=== PATIENT | male | born 1970 | race Caucasian/White ===

== ENCOUNTER 2017-06-04 12:00 | Emergency (ER) | payer BC, OTHER ==
[2017-06-04 12:35] VITALS: TEMP 97.2
--- NOTE | 2017-06-04 13:16 | ED.PDOC ---
History of Present Illness - General Chief Complaint: Abdominal Pain Stated Complaint: abdominal pain Time Seen by Provider: 06/04/17 12:21 Source: patient Exam Limitations: no limitations - History of Present Illness Initial Comments: Hans Mosqueda 46 y/o male stated that he had been having intermittent sharp right side abdominal pain for the last 5-7 days no nausea/vomiting,no diarrhea, no hematuria,no hematemesis Timing/Duration: intermittent, other - see hpi Severity: moderate Improving Factors: nothing Worsening Factors: nothing Associated Symptoms: other - see hpi Allergies/Adverse Reactions: Allergies NO KNOWN ALLERGY Allergy (Unverified 04/22/14 15:15) Home Medications: Ambulatory Orders Albuterol Inhaler [Ventolin Hfa Inhaler] 1 puff INH Q4H PRN 06/15/14 Glyburide 10 mg PO BID 06/15/14 Lisinopril [Zestril] 20 mg PO BID 06/15/14 Metformin HCl 1,000 mg PO BID 06/15/14 SAXaglipitin [Onglyza] 5 mg PO DAILY 06/15/14 Albuterol Sulfate Nebs [Proventil Nebs] 2.5 mg INH QID #100 vial 06/18/14 predniSONE 20 mg PO QAM #15 tab 06/18/14 Acetaminophen W/ Codeine [Tylenol w/Codeine 300-30 mg] 1 tab PO Q6HRS PRN #14 tab 06/04/17 Review of Systems - Review of Systems Constitutional: States: no symptoms reported EENTM: States: no symptoms reported Respiratory: States: no symptoms reported Cardiology: States: no symptoms reported Gastrointestinal/Abdominal: States: see HPI Genitourinary: States: no symptoms reported Skin: States: no symptoms reported Neurological: States: no symptoms reported Past Medical History (General) - Patient Medical History Hx Seizures: No Hx Stroke: No Hx Asthma: Yes - SOB 2 weeks Hx of COPD: No Hx Cardiac Disorders: No Hx Congestive Heart Failure: No Hx Pacemaker: No Hx Hypertension: Yes Hx Diabetes: Yes Hx MRSA: No Surgical History: cholecystectomy, other - hernia repair - Social History Hx Alcohol Use: No Hx Substance Use: No Hx Physical Abuse: No Hx Emotional Abuse: No Hx Suspected Abuse: No Family Medical History - Family History Father Family History: Unknown Hx Family Hypertension: Yes Hx Family Diabetes: Yes Physical Exam - Physical Exam General Appearance: Alert, Anxious, No apparent distress Eye Exam: bilateral normal Ears, Nose, Throat: hearing grossly normal, normal ENT inspection, normal pharynx Neck: non-tender, full range of motion, supple Respiratory: chest non-tender, lungs clear, normal breath sounds Cardiovascular/Chest: normal peripheral pulses, regular rate, rhythm, no murmur Gastrointestinal/Abdominal: normal bowel sounds, non tender, soft, no organomegaly Back Exam: no CVA tenderness, no vertebral tenderness Extremity: no pedal edema, no calf tenderness Neurologic: alert, normal mood/affect, oriented x 3 Lymphatic: no adenopathy Progress - Progress Progress: 06/04/17 15:48 Last Vital Signs Temp 97.2 F L 06/04/17 12:10 Pulse 66 06/04/17 13:25 Resp 20 06/04/17 13:25 BP 104/64 06/04/17 13:25 Pulse Ox 94 L 06/04/17 13:25 - Results/Orders Results/Orders: 06/04/17 13:33 IV Care:Saline Lock per Protoc QSHIFT EKG Assessment DAILY 06/04/17 13:34 EKG Assessment ONCE 06/04/17 13:45 EKG STAT Laboratory Results - last 24 hr 06/04/17 06/04/17 06/04/17 12:40 13:30 13:30 WBC 7.1 RBC 5.21 Hgb 15.0 Hct 43.5 MCV 83.6 MCH 28.8 MCHC 34.5 RDW 13.6 Plt Count 226 MPV 8.1 Absolute Neuts (auto) 4.90 Absolute Lymphs (auto) 1.60 Absolute Monos (auto) 0.50 Absolute Eos (auto) 0.10 Absolute Basos (auto) 0.10 Neutrophils % 68.7 Lymphocytes % 23.1 Monocytes % 6.4 Eosinophils % 1.0 Basophils % 0.8 Sodium 138 Potassium 3.7 Chloride 102 Carbon Dioxide 26 Anion Gap 13.7 BUN 10 Creatinine 0.53 L BUN/Creatinine Ratio 18.9 Random Glucose 207 H Serum Osmolality 280.8 Calcium 9.2 Total Bilirubin 0.7 AST 19 ALT 24 Alkaline Phosphatase 67 Troponin I Serum Total Protein 7.0 Albumin 4.0 Globulin 3.0 Albumin/Globulin Ratio 1.3 Lipase 30 Urine Color Yellow Urine Appearance Clear Urine pH 5.0 Ur Specific [place] 1.025 Urine Protein Negative Urine Glucose (UA) 500 H Urine Ketones Negative Urine Blood Negative Urine Nitrite Negative Urine Bilirubin Negative Urine Urobilinogen 0.2 Ur Leukocyte Esterase Negative Urine RBC 0 Urine WBC 0 Ur Epithelial Cells 0 Urine Bacteria 0 06/04/17 13:30 WBC RBC Hgb Hct MCV MCH MCHC RDW Plt Count MPV Absolute Neuts (auto) Absolute Lymphs (auto) Absolute Monos (auto) Absolute Eos (auto) Absolute Basos (auto) Neutrophils % Lymphocytes % Monocytes % Eosinophils % Basophils % Sodium Potassium Chloride Carbon Dioxide Anion Gap BUN Creatinine BUN/Creatinine Ratio Random Glucose Serum Osmolality Calcium Total Bilirubin AST ALT Alkaline Phosphatase Troponin I < 0.02 Serum Total Protein Albumin Globulin Albumin/Globulin Ratio Lipase Urine Color Urine Appearance Urine pH Ur Specific [place] Urine Protein Urine Glucose (UA) Urine Ketones Urine Blood Urine Nitrite Urine Bilirubin Urine Urobilinogen Ur Leukocyte Esterase Urine RBC Urine WBC Ur Epithelial Cells Urine Bacteria - EKG/XRAY/CT EKG: Sinus, no ST T wave changes Comments: Heart Rate 64 XRAY: chest - atelectasis CT Ordered: Yes - abd/pelvis-hepatomegaly Departure - Departure Clinical Impression: Hepatomegaly Abdominal pain Qualifiers: Abdominal location: right upper quadrant Qualified Code(s): R10.11 - Right upper quadrant pain Time of Disposition: 16:00 Disposition: Discharge to Home or Self Care Condition: Fair Departure Forms: ED Discharge - Pt. Copy, Patient Portal Self Enrollment Diet: other - Avoid [place],spicy foods Referrals: Joe Bonds III, MD [Primary Care Provider] - 1-2 Weeks Prescriptions: Acetaminophen W/ Codeine [Tylenol w/Codeine 300-30 mg] 1 tab PO Q6HRS PRN #14 tab PRN Reason: Pain Home Medications: Ambulatory Orders Albuterol Inhaler [Ventolin Hfa Inhaler] 1 puff INH Q4H PRN 06/15/14 Glyburide 10 mg PO BID 06/15/14 Lisinopril [Zestril] 20 mg PO BID 06/15/14 Metformin HCl 1,000 mg PO BID 06/15/14 SAXaglipitin [Onglyza] 5 mg PO DAILY 06/15/14 Albuterol Sulfate Nebs [Proventil Nebs] 2.5 mg INH QID #100 vial 06/18/14 predniSONE 20 mg PO QAM #15 tab 06/18/14 Acetaminophen W/ Codeine [Tylenol w/Codeine 300-30 mg] 1 tab PO Q6HRS PRN #14 tab 06/04/17 Additional Instructions: Follow up with primary md 06/05/2017-call for your appointment
[2017-06-04] MEDS ORDERED: SODIUM CHLORIDE 0.9% 1000ML 1,000 ML IVS ONE (13:35)
--- NOTE | 2017-06-04 14:00 | RAD ---
EXAM DESCRIPTION: Chest,1 View CLINICAL HISTORY: 46 years Male, chest pain COMPARISON: None. IMPRESSION: Heart size and pulmonary vascularity are within normal limits. Focal reticulonodular interstitial thickening in the perihilar left lung. This is favored to represent mild scarring or atelectasis, though developing pneumonia is not totally excluded. Short interval follow-up recommended. Otherwise no confluent airspace consolidation, pleural effusion, or pneumothorax. No acute osseous abnormality. Electronically signed by: Jose A Morgan MD 06/04/2017 1:59 PM MANAGER MARKET
--- NOTE | 2017-06-04 15:23 | CT ---
EXAM DESCRIPTION: Abdoment/Pelvis w/o Contrast CLINICAL HISTORY: pain COMPARISON: April 08, 2014 TECHNIQUE: Noncontrast transaxial CT images of the abdomen and pelvis are obtained. This exam was performed according to our departmental dose-optimization program, which includes automated exposure control, adjustment of the mA and/or kV according to patient size and/or use of iterative reconstruction technique . FINDINGS: The visualized lung bases are unremarkable. Liver is enlarged measuring 18.8 cm. There is heterogeneous decreased attenuation of the liver compared to the spleen. Cholecystectomy changes are noted. Given the limitations of a noncontrast exam the spleen, pancreas, and adrenal glands are unremarkable. Mild vascular calcifications are seen. Tiny 2 mm nonobstructing calcification in a lower pole calyx of the left kidney on coronal image 103. Urinary bladder is contracted but unremarkable. Moderate prostate calcifications are seen. The appendix is within normal limits. Stomach is contracted. No bowel obstruction or bowel wall thickening is seen. Mild scattered diverticuli of the descending to sigmoid colon are seen without associated inflammatory changes or fluid collections. No pathologic lymphadenopathy. Osseous structures show no aggressive bony lesions. Moderate disc degenerative changes and facet arthropathy of the lumbar spine is seen. IMPRESSION: Minimal nonobstructing left nephrolithiasis. Mild colon diverticulosis without CT evidence of diverticulitis. Hepatomegaly with evidence of diffuse fatty infiltration is similar to previous exam. Interval cholecystectomy changes are noted. Electronically signed by: Johnie Dobson MD 06/04/2017 3:22 PM COTTAGE CHEESE MAKER
[2017-06-04 16:14] VITALS: BP 125/81; O2SAT 96
== END 2017-06-04 16:14 | disposition home or self-care (01) ==
LOC: ER 12:00
DX: R16.0 Hepatomegaly, not elsewhere classified (principal); E11.9 Type 2 diabetes mellitus without complications; I10 Essential (primary) hypertension
CPT/HCPCS: 36415; 71010; 74176; 80053; 81001; 83690; 84484; 85025; 93005; J7030

== ENCOUNTER → 2017-06-20 | Outpatient (CLI) | payer BC | END | disposition home or self-care (01) | LOC: LAB.O 11:50 | PROVIDERS: ATTEND Internal Medicine Gastroenterology | DX: K76.0 Fatty (change of) liver, not elsewhere classified (principal) ==

== ENCOUNTER → 2017-08-16 | Outpatient (CLI) | payer BC | LOC: GMAL 17:03 | PROVIDERS: ATTEND Family Medicine | DX: R10.84 Generalized abdominal pain (principal) ==

== ENCOUNTER → 2018-10-21 | Outpatient (CLI) | payer BC ==
--- NOTE | 2018-10-21 14:18 | MRI ---
EXAM DESCRIPTION: Lumbar Spine w/o Contrast : Magnetic Resonance Imaging. CLINICAL HISTORY: LOW BACK PAIN COMPARISON: X-ray lumbar spine 09/30/2018. TECHNIQUE: Multiplanar, multiple standard sequences, non contrast MRI, lumbar spine. FINDINGS: L5-S1: Moderate disc space loss and desiccated disc. Minimal anterior bulging. Posterior focal bulge/protrusion 6 mm with osteophytes impressing on the thecal sac. Bilaterally effacing the subarticular recesses encroaching on the bilateral S1 nerves. AP canal diameter 11 mm. Bilaterally minimally facet hypertrophic arthrosis and flavum ligament thickening. Moderate to severe left foraminal narrowing and moderate right foraminal narrowing. Circumscribed hyperintense T1 and T2 signal in the left L4 and left L5 vertebral bodies indicating hemangiomas. L4-L5: Disc desiccation and minimal disc space loss. Posterior broad-based 4 mm bulge. 6 mm protrusion and inferior extrusion to the right of midline impressing on the thecal sac and effacing the right subarticular recess and displacing the descending right L5 nerve. AP canal diameter 9 mm to the left of midline. Hypertrophic left facet arthrosis and thickening of the left flavum ligament. L3-L4: Normal signal in the disc with disc space preserved. Minimal hypertrophic arthrosis of the facets and ligamentum flavum thickening with mild canal narrowing. Bilateral foramina are patent. L2-L3: Normal signal in the disc with disc space preserved. Posterior elements unremarkable. Canal and foramina are patent. L2-L1: Normal signal in the disc with disc space preserved. Posterior elements unremarkable. Canal and foramina are patent. Conus terminates at L1. Anterior right inferior L1 endplate with Modic type I endplate reactive changes. T12-L1: Normal signal in the disc with disc space preserved. Posterior elements unremarkable. Canal and foramina are patent. Small Schmorl's node superior T1 endplate. T11-T12: Anterior disc desiccated with minimal bulging. Anterior endplate ridging. Inferior T11 endplate Modic type II reactive changes. No scoliosis or significant spondylolisthesis Paravertebral soft tissues are unremarkable. Normal marrow signal in the remaining vertebral bodies and the posterior elements. Vertebral bodies are not compressed at any level. IMPRESSION: 1. Posterior focal midline bulge/protrusion of the L5-S1 disc impressing on the thecal sac. Impressing on the bilateral subarticular recesses and the bilateral S1 nerves. Moderate canal narrowing. Moderate to severe left foraminal narrowing due to disc bulge and hypertrophic facets. 2. Superior broad-based L4-5 disc bulge with right paracentral disc protrusion and extrusion inferior effacing the right subarticular recess and displacing the right L5 nerve root posterior. Right paracentral mild canal stenosis. 3. Spondylosis anterior right inferior L1 endplate and inferior anterior T11 endplate. Electronically signed by: Angel Jean MD 10/21/2018 2:16 PM CDT
== END ==
LOC: MRI 06:48
PROVIDERS: ATTEND Family Medicine
DX: M51.87 Other intervertebral disc disorders, lumbosacral region (principal); M47.897 Other spondylosis, lumbosacral region

== ENCOUNTER → 2019-10-08 | Outpatient (CLI) | payer BC | LOC: GMAL 11:41 | PROVIDERS: ATTEND Family Medicine | DX: Z00.01 Encounter for general adult medical examination with abnormal findings (principal) ==

== ENCOUNTER → 2019-10-14 | Outpatient (CLI) | payer BC | LOC: GMAL 11:15 | PROVIDERS: ATTEND Family Medicine | DX: R10.84 Generalized abdominal pain (principal) ==

== ENCOUNTER → 2019-10-15 | Outpatient (CLI) | payer BC ==
--- NOTE | 2019-10-15 13:07 | US ---
EXAM DESCRIPTION: Abdomen,Complete: Ultrasound. CLINICAL HISTORY: 48 years MaleGENERALIZED ABDOMINAL PAIN COMPARISON: None Available. TECHNIQUE: Transabdominal scanning: grayscale and Doppler modes.. Limited by large patient body habitus. FINDINGS: Gallbladder: Surgically removed. No fluid in the gallbladder fossa. Nontender with transducer pressure. Common bile duct: 8.2 mm caliber is dilated for age and postcholecystectomy. Liver: Diffuse increased echogenicity. Long axis of the right lobe 21.3 cm. Physiologic caliber 1.2 cm, and flow direction in the portal vein. Smooth capsule with no ascites. No intrahepatic biliary dilatation. Pancreas: Negative.. Abdominal aorta: Normal caliber from the proximal segment to the distal bifurcation. IVC: visualized; normal caliber. Spleen normal echogenicity; long axis measurement is 14.1 cm. Right kidney: 10.8 cm long axis. Normal cortical thickness and echogenicity. No echogenic stones, no hydronephrosis, and no perirenal fluid. Left kidney: 11.4 cm long axis. Normal cortical thickness and echogenicity. No echogenic stones, no hydronephrosis, and no perirenal fluid. IMPRESSION: 1. Large patient body habitus. Fatty enlarged liver. Physiologic ducts and vascularity. Smooth capsule with no ascites. Remainder liver negative. Pancreas is unremarkable. 2. Prior cholecystectomy with no fluid or tenderness. Common bile duct is dilated, and consideration of age and postcholecystectomy. 3. Normal caliber of the abdominal aorta and IVC. Negative findings spleen and bilateral kidneys. Electronically signed by: Angel Jean MD 10/15/2019 1:05 PM CDT
== END ==
LOC: US 08:07
PROVIDERS: ATTEND Family Medicine
DX: K76.0 Fatty (change of) liver, not elsewhere classified (principal); K83.8 Other specified diseases of biliary tract; Z90.49 Acquired absence of other specified parts of digestive tract

== ENCOUNTER → 2019-11-14 | Outpatient (CLI) | payer BC ==
--- NOTE | 2019-11-17 08:48 | MRI ---
EXAM DESCRIPTION: Abdomen: MRI. MRCP. CLINICAL HISTORY: 48 years Male DILATED COMMON BILE DUCT. Prior cholecystectomy. COMPARISON: Complete abdominal ultrasound September 2018. TECHNIQUE: Multiplanar, high-field MRI, multiple sequences, without contrast: Entered MRCP technique FINDINGS: MRCP shows mild narrowing at the cystic duct remnant. No proximal dilation of the common hepatic duct or the right and left hepatic ducts. Normal caliber of the common bile duct to the duodenal sphincter. Normal caliber of the pancreatic duct. No mass effect. Lung and Pleural bases: No infiltrate or pleural effusion. Stomach, Liver, Adrenal Glands, and Spleen: Small cyst posterior right lobe of liver. Long axis right lobe 23 cm. Stomach and other solid organs negative. Kidneys: Minimal cortical thinning bilaterally. This may be artifact, with normal cortical thickness and echogenicity seen on recent ultrasound. Proximal ureters unremarkable. Aorta: Normal caliber. Small Bowel: Included segments negative. TI and Cecum: Normal caliber of the TI. Cecum and appendix not well seen. No inflammatory changes. Colon: Normal caliber. Abdominal wall and back soft tissues: Negative. Mesentery: No ascites. Osseous structures: Unremarkable. IMPRESSION: 1. Intrahepatic ducts, and hepatic duct and common bile duct are normal caliber with minimal narrowing at the cystic duct remnant. No dilation or obstruction. Normal caliber of the pancreatic duct. 2. Small right hepatic cyst. Hepatomegaly with no ascites. Electronically signed by: Angel Jean MD 11/17/2019 8:47 AM CDT
== END ==
LOC: MRI 08:44
PROVIDERS: ATTEND Internal Medicine Gastroenterology
DX: K83.8 Other specified diseases of biliary tract (principal); K76.89 Other specified diseases of liver; R16.0 Hepatomegaly, not elsewhere classified; R93.89 Abnormal findings on diagnostic imaging of other specified body structures

== ENCOUNTER → 2020-04-26 | Outpatient (CLI) | payer BC | LOC: GMAL 14:41 | PROVIDERS: ATTEND Family Medicine | DX: F52.21 Male erectile disorder (principal); Z12.5 Encounter for screening for malignant neoplasm of prostate; R53.83 Other fatigue; E78.2 Mixed hyperlipidemia; E11.42 Type 2 diabetes mellitus with diabetic polyneuropathy; Z79.899 Other long term (current) drug therapy ==

== ENCOUNTER 2020-05-10 10:05 | Emergency (ER) | payer BC ==
[2020-05-10] MEDS ORDERED: IPRATROPIUM/ALBUTEROL 3 ML VIAL NEB ONE (10:50)
--- NOTE | 2020-05-10 12:02 | RAD ---
EXAM DESCRIPTION: Chest,1 View x-ray CLINICAL HISTORY: 49 years Male, covid COMPARISON: 06/04/2017 IMPRESSION: Heart size and pulmonary vascularity are within normal limits. Mild peripheral opacities in both lungs concerning for atelectasis versus pneumonia. Short interval follow-up PA and lateral chest radiographs recommended. No pleural effusion or pneumothorax. No acute osseous abnormality. Electronically signed by: Jose A Morgan MD 05/10/2020 12:01 PM SALT PLANT OPERATOR
[2020-05-10] MEDS ORDERED: AZITHROMYCIN 250 MG TAB PO ONE (12:20)
[2020-05-10] MEDS ORDERED: predniSONE 20 MG TAB PO ONE (12:20)
--- NOTE | 2020-05-10 12:22 | ED.PDOC ---
History of Present Illness - General Chief Complaint: Respiratory Problem Stated Complaint: SHORT OF BREATH AND COVID 9 DAYS Time Seen by Provider: 05/10/20 10:44 Source: patient Exam Limitations: no limitations - History of Present Illness Initial Comments: The patient is a 49-year-old presented emergency room secondary to persistent feeling of some shortness of breath. No syncope. Cough is minimal. He does actually respond to his nebulizer treatments which he takes about every 6 hours. He reports that he has not been on steroids or azithromycin. He is a diabetic and has been watching that closely. No syncope or near syncope. No chest pain. No rash. Cough is only minimally productive. Timing/Duration: constant Severity: moderate Improving Factors: nothing Worsening Factors: nothing Associated Symptoms: cough, malaise, shortness of breath Allergies/Adverse Reactions: Allergies NO KNOWN ALLERGY Allergy (Unverified 04/22/14 15:15) Home Medications: Ambulatory Orders Albuterol Inhaler [Ventolin Hfa Inhaler] 1 puff INH Q4H PRN 06/15/14 Glyburide 10 mg PO BID 06/15/14 Lisinopril [Zestril] 20 mg PO BID 06/15/14 Metformin HCl [Metformin Hydrochloride] 1,000 mg PO BID 06/15/14 SAXaglipitin [Onglyza] 5 mg PO DAILY 06/15/14 Albuterol Sulfate Nebs [Proventil Nebs] 2.5 mg INH QID #100 vial 06/18/14 predniSONE 20 mg PO QAM #15 tab 06/18/14 Acetaminophen W/ Codeine [Tylenol w/Codeine 300-30 mg] 1 tab PO Q6HRS PRN #14 tab 06/04/17 Azithromycin 500 mg PO DAILY #5 tab 05/10/20 predniSONE [Prednisone] 20 mg PO DAILY #7 tab 05/10/20 Review of Systems - Review of Systems Constitutional: States: malaise EENTM: States: no symptoms reported Respiratory: States: cough, short of breath, wheezing Cardiology: States: no symptoms reported Gastrointestinal/Abdominal: States: no symptoms reported Genitourinary: States: no symptoms reported Musculoskeletal: States: no symptoms reported Skin: States: no symptoms reported Neurological: States: no symptoms reported Endocrine: States: no symptoms reported All other Systems: No Change from Baseline Past Medical History (General) - Patient Medical History Hx Seizures: No Hx Stroke: No Hx Asthma: No Hx of COPD: No Hx Cardiac Disorders: No Hx Congestive Heart Failure: No Hx Pacemaker: No Hx Hypertension: Yes Hx Diabetes: Yes Hx MRSA: No - Vaccination History Hx Tetanus, Diphtheria Vaccination: Yes Hx Influenza Vaccination: Yes Hx Pneumococcal Vaccination: Yes Immunizations Up to Date: Yes - Social History Hx Tobacco Use: No Hx Chewing Tobacco Use: No Hx Alcohol Use: No Hx Substance Use: No Hx Substance Use Treatment: No Hx Depression: No Feels Threatened In Home Enviroment: No Feels Threatened In a Relationship: No Hx Physical Abuse: No Hx Emotional Abuse: No Hx Suspected Abuse: No - Female History Patient is a Female of Child Bearing Age (10 -59 yrs old): No Patient : No Family Medical History - Family History Father Family History: Unknown Hx Family Hypertension: Yes Hx Family Diabetes: Yes Physical Exam - Physical Exam General Appearance: Alert, Anxious, No apparent distress Eye Exam: bilateral normal Ears, Nose, Throat: hearing grossly normal, normal pharynx Neck: full range of motion, supple Respiratory: no respiratory distress, no accessory muscle use, wheezing Cardiovascular/Chest: normal peripheral pulses, regular rate, rhythm, no edema Peripheral Pulses: radial,right: 2+, radial,left: 2+ Gastrointestinal/Abdominal: non tender, soft Rectal Exam: deferred Back Exam: no CVA tenderness, no vertebral tenderness Extremity: normal range of motion, non-tender, normal inspection, no pedal edema, normal capillary refill Neurologic: director process engineering II-XII nml as tested, alert, normal mood/affect, oriented x 3 Skin Exam: normal color Comments: Vital Signs - 24 hr 05/10/20 05/10/20 10:23 11:05 Temperature 97.4 F L Pulse Rate 93 H Pulse Rate [ 99 H Left Radial] Respiratory 20 22 Rate Blood Pressure 175/100 [Left Arm] O2 Sat by Pulse 95 93 L Oximetry Progress - Progress Progress: 05/10/20 12:24 The patient is a 49-year-old male with known coronavirus presenting with persistent shortness of breath. He does appear to be a patient that is responsive to nebulizer treatments. For the next 2 to 3 days I do want him to do his albuterol treatments about every 4 hours. Additionally the patient is going to be placed on oral prednisone at 20 mg for the next 5 to 7 days. He is a diabetic so he does need to monitor his blood sugars closely and be fairly aggressive with his sliding scale insulin. He does need to keep himself well- hydrated. He is additionally going to be placed on azithromycin 500 daily for the next 5 days. He is not hypoxic. I do want him to follow back up with his primary care doctor towards the end of the week for repeat evaluation. He does need to stay off work for at least the next week. ER warnings are given. gavin [id number] - Results/Orders Results/Orders: EKG shows sinus tachycardia 102 bpm. Normal axis. Normal R wave progression. No ST segment or T wave changes indicative of acute ischemia. Normal QT interval. Chest x-ray shows some possibly mild infiltrates. Laboratory Tests 05/10/20 05/10/20 05/10/20 10:10 10:10 10:10 WBC 4.0 L RBC 5.16 Hgb 15.1 Hct 43.4 MCV 84.1 MCH 29.3 MCHC 34.8 RDW 13.5 Plt Count 168 MPV 7.8 Absolute Neuts (auto) 2.20 Absolute Lymphs (auto) 1.30 Absolute Monos (auto) 0.40 Absolute Eos (auto) 0.00 Absolute Basos (auto) 0.00 Neutrophils % 55.6 Lymphocytes % 32.4 Monocytes % 10.4 H Eosinophils % 1.0 Basophils % 0.6 PTT (SP) 25.3 D-Dimer, Quantitative 179.0 Sodium 135 Potassium 3.6 Chloride 100 L Carbon Dioxide 23 Anion Gap 15.6 BUN 11 Creatinine 0.66 BUN/Creatinine Ratio 16.7 Random Glucose 279 H Serum Osmolality 279.5 Calcium 8.7 Magnesium 1.7 L Total Bilirubin 0.6 AST 27 ALT 30 Alkaline Phosphatase 73 LD Total 126 Creatine Kinase 60 Troponin I C-Reactive Protein 1.3 H B-Natriuretic Peptide 5.4 Serum Total Protein 7.1 Albumin 4.0 Globulin 3.1 Albumin/Globulin Ratio 1.3 05/10/20 10:10 WBC RBC Hgb Hct MCV MCH MCHC RDW Plt Count MPV Absolute Neuts (auto) Absolute Lymphs (auto) Absolute Monos (auto) Absolute Eos (auto) Absolute Basos (auto) Neutrophils % Lymphocytes % Monocytes % Eosinophils % Basophils % PTT (SP) D-Dimer, Quantitative Sodium Potassium Chloride Carbon Dioxide Anion Gap BUN Creatinine BUN/Creatinine Ratio Random Glucose Serum Osmolality Calcium Magnesium Total Bilirubin AST ALT Alkaline Phosphatase LD Total Creatine Kinase Troponin I < 0.02 C-Reactive Protein B-Natriuretic Peptide Serum Total Protein Albumin Globulin Albumin/Globulin Ratio Departure - Departure Clinical Impression: Pneumonia due to COVID-19 virus Disposition: Discharge to Home or Self Care Condition: Fair Departure Forms: ED Discharge - Pt. Copy, Patient Portal Self Enrollment Instructions: Coronavirus Disease 2019 (COVID-19) Diet: diabetic diet Activity: increase activity as tolerated Referrals: Joe Bonds III, MD [Primary Care Provider] - 1-2 Weeks Prescriptions: Azithromycin 500 mg PO DAILY #5 tab predniSONE [Prednisone] 20 mg PO DAILY #7 tab Home Medications: Ambulatory Orders Albuterol Inhaler [Ventolin Hfa Inhaler] 1 puff INH Q4H PRN 06/15/14 Glyburide 10 mg PO BID 06/15/14 Lisinopril [Zestril] 20 mg PO BID 06/15/14 Metformin HCl [Metformin Hydrochloride] 1,000 mg PO BID 06/15/14 SAXaglipitin [Onglyza] 5 mg PO DAILY 06/15/14 Albuterol Sulfate Nebs [Proventil Nebs] 2.5 mg INH QID #100 vial 06/18/14 predniSONE 20 mg PO QAM #15 tab 06/18/14 Acetaminophen W/ Codeine [Tylenol w/Codeine 300-30 mg] 1 tab PO Q6HRS PRN #14 tab 06/04/17 Azithromycin 500 mg PO DAILY #5 tab 05/10/20 predniSONE [Prednisone] 20 mg PO DAILY #7 tab 05/10/20 Additional Instructions: The patient is a 49-year-old male with known coronavirus presenting with persistent shortness of breath. He does appear to be a patient that is responsive to nebulizer treatments. For the next 2 to 3 days I do want him to do his albuterol treatments about every 4 hours. Additionally the patient is going to be placed on oral prednisone at 20 mg for the next 5 to 7 days. He is a diabetic so he does need to monitor his blood sugars closely and be fairly aggressive with his sliding scale insulin. He does need to keep himself well- hydrated. He is additionally going to be placed on azithromycin 500 daily for the next 5 days. He is not hypoxic. I do want him to follow back up with his primary care doctor towards the end of the week for repeat evaluation. He does need to stay off work for at least the next week. ER warnings are given.
[2020-05-10 12:45] VITALS: BP 165/99; TEMP 97; O2SAT 97
== END 2020-05-10 12:45 | disposition home or self-care (01) ==
LOC: ER 10:05
DX: U07.1 COVID-19 (principal); J12.89 Other viral pneumonia; R00.0 Tachycardia, unspecified; E11.9 Type 2 diabetes mellitus without complications; I10 Essential (primary) hypertension; Z79.84 Long term (current) use of oral hypoglycemic drugs; Z79.899 Other long term (current) drug therapy
CPT/HCPCS: 36415; 71045; 80053; 82550; 83615; 83735; 83880; 84484; 85025; 85379; 85730; 86140; 93005; 94640; J7512; J7620; Q0144